=== PATIENT | female | born 1960 | race Caucasian/White ===

== ENCOUNTER 2018-01-28 16:32 | Emergency (ER) | payer BC ==
[~2018-01-28] VITALS: Ht 172.7 cm; Wt 82.1 kg
[2018-01-28] MEDS ORDERED: LISINOPRIL5 MG PO (16:37)
[2018-01-28] MEDS ORDERED: PAXIL10 MG PO (16:37)
[2018-01-28 17:20] LABS: ABSOLUTE BASOPHILS 0.1 thou/uL (0.0-0.2); ABSOLUTE EOSINOPHILS 0.2 thou/uL (0.0-0.7); ABSOLUTE LYMPHOCYTES 1.7 thou/uL (0.8-5.3); ABSOLUTE MONOCYTES 0.6 thou/uL (0.0-1.2); EOSINOPHILS 2.9 %; HEMATOCRIT 39.3 % (37.0-47.0); HEMOGLOBIN 12.6 gm/dL (12.0-15.0); LYMPHOCYTES 22.3 %; MCH 26.8 pg (26.0-34.0); MCHC 32.1 g/dL (28.0-37.0); MCV 83.5 fL (80.0-100.0); MONOCYTES 7.6 %; MPV 7.5 fl. (7.2-11.1); NUCLEATED RBCS 0 /100WBC; PLATELET COUNT* 301 thou/uL (150-400); POLYS 66.2 %; RDW-CV 15.8 % (10.5-14.5); WBC 7.6 thou/uL (4.0-11.0)
[2018-01-28 17:28] LABS: ANION GAP 14 mmol/L (7-16); BUN 15 mg/dL (7-18); CALCIUM 8.6 mg/dL (8.5-10.1); CHLORIDE 103 mmol/L (98-107); CO2 22 mmol/L (21-32); GLUCOSE 113 mg/dL (70-99); POTASSIUM 3.9 mmol/L (3.5-5.1); SODIUM 139 mmol/L (136-145)
[2018-01-28 17:35] LABS: ALBUMIN 3.2 g/dL (3.4-5.0); ALKALINE PHOSPHATASE 106 U/L (46-116); SGOT 22 U/L (15-37); SGPT 15 U/L (30-65); TOTAL BILIRUBIN 0.2 mg/dL (<0.1-1.0); TOTAL PROTEIN 6.7 g/dL (6.4-8.2); TROPONIN-I LEVEL <0.06 ng/mL (<0.06)
[2018-01-28 18:54] VITALS: BP 138/84
--- NOTE | 2018-01-30 14:42 | EKG ---
[place] [address] ELECTROCARDIOGRAM REPORT Name: ABHISHEK CATALAN Room: [facility]#: [id number] Admission: 01/28/18 Attend Phys: Discharge: 01/28/18 Date of : 60 Report #: [id number] THIS REPORT FOR: //name// [facility] ED Test Date: 2018-01-28 Test Time: 16:36:31 Pat Name: ABHISHEK CATALAN Department: Room: Gender: F [employer]: : 1960 Requested By: Fran Gannon Order Number: [id number] MD: Aleks Trinh Measurements Intervals [place] Rate: 109 P: 66 GA: 156 QRS: 22 QRSD: 75 T: 18 QT: 358 QTc: 483 Interpretive Statements Sinus tachycardia Borderline prolonged QT interval No previous ECG available for comparison Electronically Signed On 01-30-2018 14:42:19 DAIRY BACTERIOLOGIST by Aleks Trinh [email or web address] <ELECTRONICALLY SIGNED> By: Aleks Trinh MD, [facility] 01/30/18 1442 [id number] 1636 Aleks Trinh MD, FACC /EPI
== END 2018-01-28 18:58 | disposition left against medical advice (07) ==
LOC: M.ERS 16:32
PROVIDERS: Emergency Medicine Emergency Medical Services
DX: C71.9 Malignant neoplasm of brain, unspecified (principal); R56.9 Unspecified convulsions; I10 Essential (primary) hypertension; F32.9 Major depressive disorder, single episode, unspecified; F41.9 Anxiety disorder, unspecified; F17.210 Nicotine dependence, cigarettes, uncomplicated